=== PATIENT | female | born 1990 | race Two or more races ===

== ENCOUNTER 2023-09-07 22:21 | Emergency (ER) | payer MEDICAID, OTHER ==
[~2023-09-07] VITALS: Ht 157.5 cm; Wt 93.5 kg
[2023-09-07 23:27] VITALS: BP 135/84; PULSE 81; RESP 16; O2SAT 98
== END 2023-09-08 03:00 | disposition left against medical advice (07) ==
LOC: ER 22:21
DX: T24.011A Burn of unspecified degree of right thigh, initial encounter (principal); Z53.21 Procedure and treatment not carried out due to patient leaving prior to being seen by health care provider; X08.8XXA Exposure to other specified smoke, fire and flames, initial encounter; Y93.89 Activity, other specified; Y92.89 Other specified places as the place of occurrence of the external cause; Y99.8 Other external cause status

== ENCOUNTER 2023-09-09 23:57 | Emergency (ER) | payer MEDICAID ==
[~2023-09-09] VITALS: Ht 157.5 cm; Wt 94.2 kg
[2023-09-10] MEDS ORDERED: CLIN1CAP70 PO (02:13)
[2023-09-10] MEDS ORDERED: MUPI2OIN2 EX (02:13)
[2023-09-10] MEDS ORDERED: IBUP1TAB5 PO (02:13)
[2023-09-10] MEDS: NEOMYCIN-BACITRACIN-POLYM UNITDOSE PKG TOP OINT TOP ONE (02:15)
[2023-09-10] MEDS: cefTRIAXone SOD 1,000 MG VL IM ONE (02:15)
[2023-09-10] MEDS: IBUPROFEN 800 MG TAB PO ONE (03:49)
[2023-09-10] MEDS: TETANUS-DIPTH-ACEL PERTUSSIS 0.5ML SYR Tdap IM ONE (03:52)
[2023-09-10 03:56] VITALS: BP 140/75; PULSE 85; RESP 18; TEMP 97.8; O2SAT 97
== END 2023-09-10 04:18 | disposition home or self-care (01) ==
LOC: ER 23:57
DX: T24.201A Burn of second degree of unspecified site of right lower limb, except ankle and foot, initial encounter (principal); T31.0 Burns involving less than 10% of body surface; L03.115 Cellulitis of right lower limb; X19.XXXA Contact with other heat and hot substances, initial encounter; Y93.89 Activity, other specified; Y92.89 Other specified places as the place of occurrence of the external cause; Y99.8 Other external cause status
CPT/HCPCS: 16020; 90471; 90715; 96372; 99284; J0696